=== PATIENT | male | born 1945 | race Caucasian/White ===

== ENCOUNTER → 2016-11-02 | Outpatient (CLI) | payer MEDICARE ==
[~2016-11-02] MED LIST: ADVIL 200MG TA200 MG PO; FLEXERIL; IBUPROFEN600 MG PO; NEXIUM PO; PAXIL PO; PROTONIX20 MG PO; TYLENOL #3 301 UDTAB PO
== END ==
LOC: COL.RAD 07:29
DX: Z13.89 Encounter for screening for other disorder (principal); Z87.891 Personal history of nicotine dependence